=== PATIENT | male | born 1960 | race Caucasian/White ===

== ENCOUNTER 2020-07-15 07:27 | Observation (INO) | payer OTHER, SELFPAY ==
[2020-07-15] VITALS (17 sets, daily range): BP systolic 102–139; BP diastolic 62–89; PULSE 80–124; RESP 11–20; TEMP 36.2–37.8; O2SAT 90–98; BMI 32.8; BMI 32.3
--- NOTE | 2020-07-15 | PATH_ITS ---
[facility] Accession Number: [id number] . 01 Material submitted: . gallbladder - GALLBLADDER AND CONTENTS . 02 Diagnosis: Gallbladder, Cholecystectomy: Acute necrotizing cholecystitis with serositis. Cholelithiasis. Negative for dysplasia and malignancy. [facility] 07/21/2020 1442 Local . 02 Electronically signed: . Yanni Rosado MD, Pathologist NPI- [id number] . 01 Gross description: . The specimen is received in formalin, labeled gallbladder and contents and consists of a diffusely fragmented gallbladder measuring 11.0 x 7.0 x 4.0 cm in aggregate with a 0.3 cm in diameter cystic duct. The serosa is del castillo-pink with adherent purulent exudate and opening reveals a del castillo-pink hemorrhagic and granular mucosa. The wall thickness measures 0.4 cm. Also received within the specimen container are two green bosselated choleliths measuring 1.0 and 1.6 cm. Senior Interior Designer sections are submitted to include the en face cystic duct margin (blue) in cassette A1. (EA:[id number]) /MRV 07/19/2020 1058 Local . 02 Pathologist provided ICD-10: K80.60 . 02 CPT . 984382 Performed at: 01 [facility] [address], [place], [place] [id number] MD Rolando Casey MD Phone: [phone] Performed at: 02 [facility] [address] [place], [place] [id number] MD Yanni Rosado MD Phone: [phone]
--- NOTE | 2020-07-15 07:45 | ED_ITS ---
HPI - Abdominal Pain General Chief Complaint: Abdominal Pain Stated Complaint: upper right quad pain inter x3 days Time Seen by Provider: 07/15/20 07:45 Source: patient Mode of arrival: Ambulatory Limitations: no limitations History of Present Illness HPI narrative: This is a 60-year-old male comes emergency department with complaint of right upper quadrant pain that is been intermittent for the past 3 days. Patient developed discomfort on Saturday which resolved and then reoccurred yesterday. Patient has had constant pain but waxing and waning intensity overnight and into this morning. Patient denies any fevers or chills. He denies any chest pain or shortness of breath. He denies any nausea or vomiting at this time although he had some nausea prior. Patient denies any diarrhea. He states he has not been having any bowel movement recently but has been flatus regularly. He states he has not been eating much food so is not sure if he is truly constipated and has not had much intake. Patient denies any dysuria, frequency or sense of urgency and denies any flank pain. Patient states that his pain is localized more to the right upper quadrant does not appreciated elsewhere in his abdomen. He does not appreciate any exacerbating or alleviating factors. He states that he did have Jin's on Saturday but his pain did not begin immediately after. He denies any medical issues, no regular medications. He denies any prior surgeries except for appendectomy. He does smoke a pack of cigarettes daily, occasional alcohol denies any recreational drugs. He states he does not have a primary care physician. Related Data Home Medications Medication Instructions Recorded Confirmed No Known Home Medications 07/15/20 07/15/20 Allergies Allergy/AdvReac Type Severity Reaction Status Date / Time No Known Drug Allergies Allergy Verified 07/15/20 07:56 Review of Systems Review of Systems ROS Unobtainable: All systems reviewed & are unremarkable except as noted in HPI and below Patient History Surgical History Hx of appendectomy Social History household members: spouse Smoking Status: Current every day smoker alcohol intake: current Smoking Status: Current every day smoker alcohol intake frequency: a few times a month Substance Use Type: does not use Exam Narrative Exam Narrative: GENERAL: Alert and oriented x three, well-nourished male in mild distress. HEENT: Head normocephalic, atraumatic, EOMI, pupils reactive, face symmetric, moist mucous membranes NECK: Supple, full range of motion CARDIOVASCULAR: Regular rate and rhythm without murmurs, rubs or gallops. RESPIRATORY: Breath sounds equal bilaterally, no wheezes rales or rhonchi. ABDOMEN: Soft, positive for right upper quadrant tenderness. Nondistended. Normoactive bowel sounds all 4 quadrants. No guarding or rebound, rigidity, no mass, no pulsatile mass or bruit noted. : No CVA tenderness EXTREMITIES: Normal range of motion, no clubbing or edema. Neurovascularly intact NEUROLOGICAL: Cranial nerves II through XII grossly intact. Moving all extremities SKIN: Warm, dry, no petechiae, no rashes or lesions noted on abdomen or torso. Initial Vital Signs Initial Vital Signs: Vital Signs Pulse Rate 120 H 07/15/20 07:43 Pulse Oximetry 94 07/15/20 07:43 Course Orders Ordered: Discontinued Medications Sodium Chloride (Normal Saline 0.9%) 1,000 mls @ 1,000 mls/hr IV BOLUS ONE Stop: 07/15/20 08:51 Last Infusion: 07/15/20 10:05 Dose: 0 mls/hr Documented by: Admin: 07/15/20 08:36 Dose: 1,000 mls/hr Documented by: LINA Ampicillin Sodium/Sulbactam (Sodium 3 gm/ Sodium Chloride) 100 mls @ 100 mls/hr IV NOW ONE Stop: 07/15/20 09:06 Last Admin: 07/15/20 09:55 Dose: Not Given Documented by: LINA Cefotetan Disodium 2 gm/ (Sodium Chloride) 100 mls @ 200 mls/hr IV NOW ONE Stop: 07/15/20 09:11 Last Infusion: 07/15/20 10:06 Dose: 0 mls/hr Documented by: Admin: 07/15/20 09:34 Dose: 200 mls/hr Documented by: LINA Cefotetan Disodium 2 gm/ (Sodium Chloride) 100 mls @ 200 mls/hr IV INTRA-OP ONE Stop: 07/15/20 17:39 Ketorolac Tromethamine (Ketorolac 60 Mg/2 Ml Vial) 15 mg IV NOW ONE Stop: 07/15/20 07:53 Last Admin: 07/15/20 08:35 Dose: 15 mg Documented by: LINA Vital Signs Vital signs: Vital Signs - 8 hr 07/15/20 07:43 07/15/20 07:50 07/15/20 08:00 Temperature 98.8 F Pulse Rate 120 H 124 H 114 H Respiratory Rate 20 20 Blood Pressure 120/82 126/89 Pulse Oximetry 94 92 92 07/15/20 08:30 07/15/20 09:00 Temperature Pulse Rate 104 H 104 H Respiratory Rate Blood Pressure Pulse Oximetry 93 91 MDM - Abdominal Pain Lab Data Attestation: I reviewed the patient's lab results. Result diagrams: 07/15/20 08:30 07/15/20 08:30 Labs: Lab Results 07/15/20 07/15/20 07/15/20 Range/Units 08:30 08:30 08:30 WBC 14.5 H (4.5-11.0) X10^3/uL RBC 5.58 (4.5-5.9) X10^6/uL Hgb 16.5 (13.5-17.5) g/dL Hct 48.8 (41-53) % MCV 87.4 (80-100) fL MCH 29.6 (26-34) PG MCHC 33.9 (30-36) % RDW 15.2 H (11.6-14.8) % Plt Count 239 (150-400) X10^3/uL Neut % (Auto) 79.1 H (50-75) % Lymph % (Auto) 9.1 L (25-40) % [place] % (Auto) 11.4 (3-14) % Eos % (Auto) 0.2 L (2-4) % Baso % (Auto) 0.2 (0-2) % Neut # (Auto) 48838 H (4174-9293) /uL Lymph # (Auto) 1300 (5136-7245) /uL [place] # (Auto) 1700 H (0-900) /uL Eos # (Auto) 0 (0-450) /uL Baso # (Auto) 0 (0-100) /uL PT 15.9 H (10.1-12.7) SECONDS INR 1.4 H (0.9-1.3) APTT 31 (26.4-36.2) SECONDS Sodium 132 L (137-145) mmol/L Potassium 5.4 H (3.4-5.1) mmol/L Chloride 101 (98-107) mmol/L Carbon Dioxide 23 (22-32) mmol/L BUN 20 (9-20) mg/dL Creatinine 0.96 (0.66-1.25) mg/dL Estimated GFR > 60.0 (>60) mL/min BUN/Creatinine Ratio 20.8 (6-22) Glucose 142 H (80-110) mg/dL Lactate (0.7-2.1) mmol/L Calcium 9.2 (8.4-10.2) mg/dL Total Bilirubin 3.0 H (0.2-1.3) mg/dL AST 41 (17-59) IU/L ALT 21 (<50) IU/L Alkaline Phosphatase 51 (38-126) U/L Total Protein 7.6 (6.3-8.2) g/dL Albumin 4.0 (3.5-5.0) g/dL Globulin 3.6 (1.7-4.1) g/dL Albumin/Globulin Ratio 1.1 (1.0-2.8) Lipase < 10 L (23-300) U/L 07/15/20 Range/Units 08:30 WBC (4.5-11.0) X10^3/uL RBC (4.5-5.9) X10^6/uL Hgb (13.5-17.5) g/dL Hct (41-53) % MCV (80-100) fL MCH (26-34) PG MCHC (30-36) % RDW (11.6-14.8) % Plt Count (150-400) X10^3/uL Neut % (Auto) (50-75) % Lymph % (Auto) (25-40) % [place] % (Auto) (3-14) % Eos % (Auto) (2-4) % Baso % (Auto) (0-2) % Neut # (Auto) (0926-8488) /uL Lymph # (Auto) (8335-6604) /uL [place] # (Auto) (0-900) /uL Eos # (Auto) (0-450) /uL Baso # (Auto) (0-100) /uL PT (10.1-12.7) SECONDS INR (0.9-1.3) APTT (26.4-36.2) SECONDS Sodium (137-145) mmol/L Potassium (3.4-5.1) mmol/L Chloride (98-107) mmol/L Carbon Dioxide (22-32) mmol/L BUN (9-20) mg/dL Creatinine (0.66-1.25) mg/dL Estimated GFR (>60) mL/min BUN/Creatinine Ratio (6-22) Glucose (80-110) mg/dL Lactate 1.1 (0.7-2.1) mmol/L Calcium (8.4-10.2) mg/dL Total Bilirubin (0.2-1.3) mg/dL AST (17-59) IU/L ALT (<50) IU/L Alkaline Phosphatase (38-126) U/L Total Protein (6.3-8.2) g/dL Albumin (3.5-5.0) g/dL Globulin (1.7-4.1) g/dL Albumin/Globulin Ratio (1.0-2.8) Lipase (23-300) U/L Imaging Data US - abdomen: Radiologist's Impression: [address] [id number] ReportSigned Patient: Olu Mitchell R#: [id number]: 9Acct:[id number]/Sex: 60 / MDate of Service: 07/15/20Loc: EDAccession Number: [id number] Procedure: US abdomen limited Ordering Provider: Sophia Galeano D.O. PROCEDURE: US ABDOMEN LIMITED INDICATIONS: RIGHT UPPER QUADRANT PAIN TECHNIQUE: Real-time focused scanning was performed of the abdomen, with image documentation. COMPARISON: None. FINDINGS: Liver is normal in size and echotexture. Non mobile gallstones noted. There is a 5 millimeter gallstone in the neck of the gallbladder. Gallbladder wall is thickened to 17 point 6 millimeters. Trace pericholecystic fluid is noted. Positive sonographic Landon sign reported. Biliary tree is nondilated measuring 5.4 millimeters. IMPRESSION: Sonographic findings compatible with acute cholecystitis and charmaine lithiasis Dictated by: Clarisa Douglas MD, PhD on 07/15/2020 at 8:52 Approved by: Clarisa Douglas MD, PhD on 07/15/2020 at 8:53 ECG Data Attestation: I personally reviewed and interpreted this ECG as follows: Prior ECG tracings: not available for review Interpretation: Sinus tachycardia rate of 114 MO 148 QRS of 100 and QTC of 443. No acute ST elevation appreciated. LAD. No prior EKG available. MDM Narrative Medical decision making narrative: This is a 60-year-old male comes in with 4 days of right upper quadrant pain which has been intermittent. Patient has right upper quadrant tenderness on examination. He has been afebrile but has a white count, gallbladder wall thickening, stones within the gallbladder which are non mobile within elevation in his bilirubin. Patient's potassium is slightly elevated at 5.4. Patient does not have any known medical history but has not seen a physician for several years. Spoke with our general surgeon Dr. Valero who kindly accepts with plan for cefotetan 2 g IV, fluids and he will admit patient. Discharge Plan Departure Patient Disposition: Admitted as Observation Clinical Impression: Abdominal pain, Cholelithiases, Cholecystitis Admit Date/Time: 07/15/20 09:13 Admit Provider: Amandeep Valero
--- NOTE | 2020-07-15 07:53 | DI.US.S_ITS ---
PROCEDURE: US ABDOMEN LIMITED INDICATIONS: RIGHT UPPER QUADRANT PAIN TECHNIQUE: Real-time focused scanning was performed of the abdomen, with image documentation. COMPARISON: None. FINDINGS: Liver is normal in size and echotexture. Non mobile gallstones noted. There is a 5 millimeter gallstone in the neck of the gallbladder. Gallbladder wall is thickened to 17 point 6 millimeters. Trace pericholecystic fluid is noted. Positive sonographic Landon sign reported. Biliary tree is nondilated measuring 5.4 millimeters. IMPRESSION: Sonographic findings compatible with acute cholecystitis and cholelithiasis Dictated by: Clarisa Douglas MD, PhD on 07/15/2020 at 8:52 Approved by: Clarisa Douglas MD, PhD on 07/15/2020 at 8:53
[2020-07-15] MEDS: LACTATED RINGERS 1,000 ML 42 ML IV (08:00)
[2020-07-15] MEDS: KETOROLAC 60 MG/2 ML VIAL 15 MG IV (08:35)
[2020-07-15] MEDS: SODIUM CHLORIDE 0.9% 1,000 ML 1000 ML IV (08:36)
[2020-07-15 08:40] LABS: Add Manual Diff / Slide Review NO; Basophils Absolute Auto 0 /uL (0-100); Basophils Percent Auto 0.2 % (0-2); Eosinophils Absolute Auto 0 /uL (0-450); Eosinophils Percent Auto 0.2 % (2-4); Hematocrit 48.8 % (41-53); Hemoglobin 16.5 g/dL (13.5-17.5); Lymphocytes Absolute Auto 1300 /uL (1100-4500); Lymphocytes Percent Auto 9.1 % (25-40); Mean Corpuscular HGB Conc 33.9 % (30-36); Mean Corpuscular Hemoglobin 29.6 PG (26-34); Mean Corpuscular Volume 87.4 fL (80-100); Monocytes Absolute Auto 1700 /uL (0-900); Monocytes Percent Auto 11.4 % (3-14); Neutrophils Absolute Auto 11500 /uL (1500-7000); Neutrophils Percent Auto 79.1 % (50-75); Platelet Count 239 X10^3/uL (150-400); Red Blood Cell Count 5.58 X10^6/uL (4.5-5.9); Red Cell Distribution Width 15.2 % (11.6-14.8); White Blood Cell Count 14.5 X10^3/uL (4.5-11.0)
[2020-07-15 08:43] LABS: INR 1.4 (0.9-1.3); Prothrombin Time 15.9 SECONDS (10.1-12.7)
[2020-07-15 08:45] LABS: PTT Partial Thromboplastin Tim 31 SECONDS (26.4-36.2)
[2020-07-15 08:47] LABS: Alanine Aminotransferase 21 IU/L (<50); Albumin Globulin Ratio 1.1 (1.0-2.8); Alkaline Phosphatase 51 U/L (38-126); Aspartate Aminotransferase 41 IU/L (17-59); BUN Creatinine Ratio 20.8 (6-22); Blood Urea Nitrogen 20 mg/dL (9-20); Calcium 9.2 mg/dL (8.4-10.2); Carbon Dioxide 23 mmol/L (22-32); Chloride 101 mmol/L (98-107); Estimated Glomerular Filt Rate > 60.0 mL/min (>60); Globulin 3.6 g/dL (1.7-4.1); Glucose 142 mg/dL (80-110); Lactate (Lactic Acid) 1.1 mmol/L (0.7-2.1); Sodium 132 mmol/L (137-145); Total Protein 7.6 g/dL (6.3-8.2)
[2020-07-15 08:49] LABS: HEMOLYSIS 195 (0-50); Lipase < 10 U/L (23-300); Potassium 5.4 mmol/L (3.4-5.1)
[2020-07-15] MEDS: CEFOTETAN 2 GM in SODIUM CHLORIDE 0.9% 100 ML 200 ML IV ×2 (09:34→20:40)
[2020-07-15 10:41] LABS: COVID19 - ADMIT (NP swab/PCR) Negative (Negative)
--- NOTE | 2020-07-15 10:59 | CM.MNRNOTE ---
Addendum entered by Fariha Bryson R.N. 07/15/20 12:03: Patient is npo and has not had anything since 0400 this morning. He is resting comfortably and bolus of NS infusing. Original Note: Patient admitted to room 218 at 1020 for choleecystitis, he denies pain at this time. He is alert and oriented x3. Patient is a 1 pack a day smoker, he occasionally drinks alcohol on holidays and special occasions. Skin is clear, he does have one area on his side that is red, maybe from itching. He will be going down to surgery around 181 this evening. Resting comfortably. Patients support person is his Kelly Mitchell. He is NPO
--- NOTE | 2020-07-15 16:02 | PC.NURSE ---
Addendum entered by Karen Diamond R.N. 07/15/20 19:47: Pt to O.R. awake, alert, conversant. Elif RN from surgery, informed of pt's temp 100.0 and need for intraop antibiotic which was provided intact to Elif to hang when appropriate. Addendum entered by Karen Diamond R.N. 07/15/20 19:11: Continues to rest quietly in bed. Awaiting surgery. Spouse present with pt in room. IV antibiotic ordered intra-op so will notify staff when surgery team comes to transport pt. Addendum entered by Karen Diamond R.N. 07/15/20 16:51: Dr. Valero has seen pt. Pt's spouse, Mimi, now arrives and is at bedside. Pt denies nausea and reports RUQ pain 2/10 @ rest. Denies need for pain medication, but was encouraged to ask for as needed. Pt remains NPO pending surgery. Original Note: Pt resting quietly in bed with eyes closed. No signs of distress or discomfort. IV bolus completed.
--- NOTE | 2020-07-15 17:39 | PM.HP.1 ---
History of Present Illness History of Present Illness Date Patient Seen: 07/15/20 Time Patient Seen: 16:30 Chief complaint: upper right quad pain inter x3 days Narrative: The patient is a gentleman who has about a 3 day history of intermittent abdominal pain. The pain began on Saturday went away and then came back Saturday and is and progressed and kept him up all night he came to the emergency room earlier today. He was found to have gallstones on ultrasound and elevated bilirubin was brought into the hospital. He has no elevated white count as well. No vomiting. No passage of blood per rectum. No history of jaundice. He has not had this pain before. Pain is located in the right upper abdomen. It is eased off quite a bit since his admission. Patient History Surgical History Hx of appendectomy Family & Social History Social History: household members spouse Prior Living Arrangements House Safety & Behavioral: Feels Safe in Current Yes Environment Been Physically Hurt or No Threatened By a Person Suicidal Ideation Description None Suicide Plan Description No Plan Tobacco & Substance use: Tobacco type cigarettes Smoking Status Current every day smoker Smoking packs per day 1 alcohol intake current alcohol intake frequency holiday/special occasion Substance Use Type does not use Meds Home Medications and Allergies Home Medications Medication Instructions Recorded Confirmed Type No Known Home Medications 07/15/20 07/15/20 History Allergies Allergy/AdvReac Type Severity Reaction Status Date / Time No Known Drug Allergies Allergy Verified 07/15/20 07:56 Review of Systems Review of Systems Narrative: Patient denies visual difficulties. He had LASIK surgery in the past and does not wear glasses though he thinks he needs to get some Ernie is a. No he does not have teeth that wears upper and lower dentures. No difficulty swallowing. No earaches. No cough cold or asthma. No heart problems or chest pain. No black or bloody bowel movements. No seizures or blackouts. No kidney stones or blood in his urine. No anxiety or depression. Patient has not seen a doctor recently however. Exam Vital Signs (past 8 hours): - 07/15/20 10:00 07/15/20 10:22 07/15/20 14:01 Temperature 98.4 F 98.2 F Pulse Rate 93 H 80 100 H Respiratory Rate 16 16 Blood Pressure 115/69 113/75 135/88 Pulse Oximetry 94 94 95 Oxygen Delivery Method Room Air Narrative Exam Narrative: Cooperative gentleman in no apparent distress. Despite a bilirubin 3 I really do not see that his sclera is icteric. Pupils equal round reactive to light. Ears without lesion. Nasal septum is midline. Oral mucosa a little dry but no open lesions. Dentures noted. He has no nodes in the neck or supraclavicular areas. Trachea is midline mobile. Thyroid is not enlarged. Lungs are clear to auscultation without rales or rhonchi. Equal percussion. Heart regular rate and rhythm without murmur gallop. No heave lift or thrill. Abdomen is protuberant soft. No tenderness at this time. Liver and spleen are not enlarged. No ventral hernias appreciated. Patient is alert and oriented x3. Speech rate and content are appropriate affect is appropriate. No open skin lesions or ulceration. Texture and turgor 2+. Objective Imaging US - abdomen: My impression: Thickened gallbladder wall with stones. Radiologist's impression: Same with fluid around the gallbladder. Labs Result Diagrams: 07/15/20 08:30 07/15/20 08:30 Labs: Laboratory Results - last 24 hr 07/15/20 07/15/20 07/15/20 08:30 08:30 08:30 WBC 14.5 H RBC 5.58 Hgb 16.5 Hct 48.8 MCV 87.4 MCH 29.6 MCHC 33.9 RDW 15.2 H Plt Count 239 Neut % (Auto) 79.1 H Lymph % (Auto) 9.1 L [place] % (Auto) 11.4 Eos % (Auto) 0.2 L Baso % (Auto) 0.2 Neut # (Auto) 20605 H Lymph # (Auto) 1300 [place] # (Auto) 1700 H Eos # (Auto) 0 Baso # (Auto) 0 PT 15.9 H INR 1.4 H APTT 31 Sodium 132 L Potassium 5.4 H Chloride 101 Carbon Dioxide 23 BUN 20 Creatinine 0.96 Estimated GFR > 60.0 BUN/Creatinine Ratio 20.8 Glucose 142 H Lactate Calcium 9.2 Total Bilirubin 3.0 H AST 41 ALT 21 Alkaline Phosphatase 51 Total Protein 7.6 Albumin 4.0 Globulin 3.6 Albumin/Globulin Ratio 1.1 Lipase < 10 L SARS-CoV-2 (PCR) 07/15/20 07/15/20 08:30 09:33 WBC RBC Hgb Hct MCV MCH MCHC RDW Plt Count Neut % (Auto) Lymph % (Auto) [place] % (Auto) Eos % (Auto) Baso % (Auto) Neut # (Auto) Lymph # (Auto) [place] # (Auto) Eos # (Auto) Baso # (Auto) PT INR APTT Sodium Potassium Chloride Carbon Dioxide BUN Creatinine Estimated GFR BUN/Creatinine Ratio Glucose Lactate 1.1 Calcium Total Bilirubin AST ALT Alkaline Phosphatase Total Protein Albumin Globulin Albumin/Globulin Ratio Lipase SARS-CoV-2 (PCR) Negative Assessment & Plan Assessment & Plan narrative: Cholelithiasis with cholecystitis. Given the elevated bilirubin there is also possibility of choledocholithiasis. However the elevation may just be due to inflammation of the gallbladder. I have discussed the operation that I recommend which is a laparoscopic cholecystectomy and intraoperative cholangiogram with the patient. Rationale for was discussed. Risks of bleeding, infection, injury to internal organs or ducts which would require major operation to repair them, bile leakage probably necessitating an ERCP with stent placement, hernia, and the potential need for postoperative ERCP to extract stones was all discussed with the patient. He appears to understand wishes to proceed.
--- NOTE | 2020-07-15 17:47 | PM.PREOP ---
Pre-operative Note COVID-19 COVID-19 status: Negative Result date/Date tested (Pos, Neg/Pending): 07/15/20 Interval Note History & Physical reviewed/Exam performed by Physician: Yes Changes to H&P: No
--- NOTE | 2020-07-15 21:07 | SUR.OPER ---
Supine on padded OR bed, head on pillow, arms secured on padded arm boards at <90 degrees abduction, legs uncrossed, safety belt at thigh, tape over blanket over lower legs.
[2020-07-15] MEDS: BUPIVACAINE 0.5% (PF) VIAL 30 ML INJ (21:17)
--- NOTE | 2020-07-15 22:39 | P.OP_ITS ---
Operative Date/Time/Diagnoses Date of procedure: 07/15/20 Time of procedure: 22:39 Pre-op diagnosis: Acute cholecystitis with cholelithiasis. Post-op diagnosis: other (Acute cholecystitis with cholelithiasis and hydrops of the gallbladder with an obstructed cystic duct.) Procedure & Clinicians Procedure: Laparoscopic cholecystectomy Same procedure as scheduled: Yes Indications: Inflamed gallbladder with stones and abdominal pain. Surgeon: Amandeep Valero Click Yes if Unassisted: Yes Anesthesia Type: General Operative Notes Findings: Markedly thickened gallbladder wall and a gallbladder filled with nearly clear fluid. Tiny cystic duct. Closure Type: primary Specimen(s): other (Gallbladder in pieces and cultures of the gallbladder fluid) Applied: drain(s) (Neil-Benito placed in the gallbladder fossa) Estimated Blood Loss (mL): 20 Blood products transfused: none Procedure in detail: The patient was placed supine on the operating room table and underwent general endotracheal anesthesia. The patient was prepped and d raped in the usual fashion. Local anesthetic was infiltrated near the umbilicus and linear incision made and carried down through fascia into the peritoneal cavity. Stay sutures of 0 Vicryl were placed in the fascia. A 12 mm port was placed. The abdomen was insufflated. The patient was repositioned. Local anesthetic was infiltrated in 3 areas under the right costal margin and 3 small incisions made followed by placing 3 5 mm ports under direct laparoscopic camera vision internally. The gallbladder was identified and was encased in omentum which was bluntly swept off of it. It was tensely distended and I had aspirate the contents in order to place clamps on it. The fluid was almost clear and mucoid in nature. Cultures were sent. It was there had Grasped and elevated. Dissection was begun near its end. Principally with blunt dissection I isolated what appeared to be a ductal structure going directly to the gallbladder that was singular in nature. Four clips were placed across it was divided leaving 2 in the patient. I chose not to do a cholangiogram through the cystic duct because it was quite small and the fluid aspirated suggested no stone could pass out through because the outlet of the gallbladder was obstructed. I also bluntly isolated what appeared to be the cystic artery. It was handled in identical fashion. The gallbladder was then dissected from its bed in the liver using cautery. This was a very slow tedious process due to the amount of edema and thickness of the wall. Ultimately the gallbladder was detached, placed in a bag to prevent spillage and removed through the umbilical port. I had to remove it in pieces due to its very large size and thick wall. There were 3 still nodes in the gallbladder 1 measuring about 2 cm. Meticulous hemostasis was achieved in the gallbladder bed. The right upper quadrant irrigated and suctioned free of fluid. I placed a 7 mm wide Neil-Benito drain in the gallbladder fossa and brought it out through the lateral-most port. This was secured with a 2 0 PDS suture. The other ports were removed. The port sites were all irrigated. The stay sutures at the umbilicus were elevated. A 2 0 PDS suture was placed between them. The Vicryl and PDS sutures were then tied. The skin in all areas was closed with interrupted 4 0 Vicryl subcuticular stitches. Steri-Strips and Mastisol were applied. Band-Aids were placed and the patient was awakened, extubated and taken to the recovery area in good condition. Complications: none Post-operative Condition: stable Disposition: PACU Plan for aftercare: Admit. IV antibiotics.
--- NOTE | 2020-07-15 22:45 | SUR.PHASEI ---
Patient denies any pain or nausea; vss. post-surgical dressings CDI.
[2020-07-15] MEDS: ONDANSETRON 4 MG/2 ML INJ IV (22:50)
[2020-07-15] MEDS: LACTATED RINGERS 1,000 ML 150 ML IV (23:33)
[2020-07-16] VITALS (8 sets, daily range): BP systolic 102–131; BP diastolic 64–86; PULSE 78–90; RESP 18–20; TEMP 36.1–36.4; O2SAT 93–95
[2020-07-16] MEDS: OXYCODONE IR 5 MG TABLET 10 MG PO (03:34)
[2020-07-16] MEDS: LACTATED RINGERS 1,000 ML 150 ML IV (06:01)
[2020-07-16 06:02] LABS: Add Manual Diff / Slide Review NO; Basophils Absolute Auto 0 /uL (0-100); Basophils Percent Auto 0.2 % (0-2); Eosinophils Absolute Auto 0 /uL (0-450); Hematocrit 43.4 % (41-53); Hemoglobin 14.5 g/dL (13.5-17.5); Lymphocytes Absolute Auto 700 /uL (1100-4500); Lymphocytes Percent Auto 6.8 % (25-40); Mean Corpuscular HGB Conc 33.5 % (30-36); Mean Corpuscular Hemoglobin 29.5 PG (26-34); Monocytes Absolute Auto 500 /uL (0-900); Monocytes Percent Auto 4.2 % (3-14); Neutrophils Absolute Auto 9800 /uL (1500-7000); Neutrophils Percent Auto 88.8 % (50-75); Platelet Count 218 X10^3/uL (150-400); Red Blood Cell Count 4.93 X10^6/uL (4.5-5.9); Red Cell Distribution Width 14.6 % (11.6-14.8)
[2020-07-16 06:13] LABS: Alanine Aminotransferase 40 IU/L (<50); Albumin 3.3 g/dL (3.5-5.0); Albumin Globulin Ratio 1.1 (1.0-2.8); Alkaline Phosphatase 66 U/L (38-126); Aspartate Aminotransferase 62 IU/L (17-59); BUN Creatinine Ratio 24.2 (6-22); Blood Urea Nitrogen 23 mg/dL (9-20); Calcium 8.9 mg/dL (8.4-10.2); Carbon Dioxide 30 mmol/L (22-32); Chloride 103 mmol/L (98-107); Estimated Glomerular Filt Rate > 60.0 mL/min (>60); Glucose 180 mg/dL (80-110); HEMOLYSIS < 15 (0-50); Sodium 138 mmol/L (137-145); Total Protein 6.3 g/dL (6.3-8.2)
[2020-07-16 06:14] LABS: Potassium 5.3 mmol/L (3.4-5.1)
[2020-07-16] MEDS: CEFOTETAN 2 GM in SODIUM CHLORIDE 0.9% 100 ML 200 ML IV (08:49)
[2020-07-16] MEDS: ENOXAPARIN 40 MG/0.4 ML SYRINGE SUBCUT (08:50)
[2020-07-16] MEDS: GABAPENTIN 300 MG CAPSULE PO (08:50)
[2020-07-16] MEDS: SENNOSIDES 8.6 MG TABLET 17.2 MG PO (08:50)
--- NOTE | 2020-07-16 10:38 | CM.DANOTE ---
Addendum entered by OSBALDO Ray 07/16/20 13:15: ADD: Per Surgeon, pt medically stable to d/c home with outpt follow up and no identified barriers to discharge. Pt's spouse provided transport home and no concerns at this time. BF Original Note: Patient is a 60 year old male who was admitted on 07/15/20 for Upper Right Quadrant Pain. Pt has [employer] for insurance and his PCP is not listed. EMR was reviewed. Per Surgeon, pt with gallstones and elevated bilirubin and recommending a Lap Xena and pt agreeable with surgery and Surgeon completed procedure last night and pt tolerated well. SW met bedside with pt and explained role and pt confirmed that he lives in [place] with his spouse and is active and independent at baseline. Pt denies any hx of HH or SNF or any recent hospital admissions. Pt is retired but spouse still works and they just completed vacation time together and spouse is back to work on Saturday but can assist if needed at d/c. Pt states spouse is currently his informal DPOA. Preference is to d/c home today with spouse if medically stable and pt does not anticipate any SW needs at d/c. Plan: SW to follow for Surgeon to round to determine any d/c planning needs and if pt stable and safe for d/c home later today or tomorrow. OSBALDO Ray Discharge Planning/Care Management CM Discharge Assessment Start: 07/16/20 10:37 Freq: Status: Active Protocol: Document 07/16/20 10:37 BF (Rec: 07/16/20 10:38 [id number]) Discharge Planning Assessment Assigned [employer] Tender OSBALDO Jones DPOA/Assigned Designee Name none, informally spouse Mimi Advance Directives? No Advance Directives on File No History Provided By Patient,Medical Record Has Patient been admitted in last 30 No days? Prior Living Arrangements House Household Members spouse Type of transporation used prior to Drives own vehicle admit Comment Quite active and independent at baseline Independent with ADL's Yes Is patient alert and oriented? Yes Caregiver for Another No Barriers to Discharge No Discharge Plan Home Transportation Arrangement Spouse available for transport at d/c Referrals Initiated None needed Whiteboard Updated in Patient Room with Yes name and ext. # of [employer] Machine Tender Review Status In Process Please Provide Date Initial DC 07/16/20 Assessment Was Performed Next Review Type Continued Stay Review
--- NOTE | 2020-07-16 11:15 | PM.DS.1 ---
History of Present Illness History of Present Illness Date Patient Seen: 07/16/20 Time Patient Seen: 11:15 Chief complaint: upper right quad pain inter x3 days Narrative: Patient was admitted for acute cholecystitis. Discharge Providers Provider Date of admission: 07/15/20 09:13 Discharge Date: 07/16/20 Consults: 07/15/20 23:23 Consult to Discharge Planning Routine Comment: Discharge provider: Benoit Louis MD Summary Hospital Course Discharge Diagnosis: Acute cholecystitis Hospital Course: Underwent a laparoscopic cholecystectomy 07/15. Operation was notable for hydrops. Preoperative total bilirubin 3.0 today postop 1.0, remainder of labs are unremarkable. He is tolerating a diet his pain is well controlled and stable for discharge home. He has a intra-abdominal drain which will be removed in 2 days time in clinic. Exam Vital Signs (past 8 hours): - 07/16/20 04:30 07/16/20 04:56 07/16/20 08:00 Temperature 97.5 F L Pulse Rate 90 Respiratory Rate 18 Blood Pressure 102/73 Pulse Oximetry 95 95 95 07/16/20 09:23 Temperature 97.0 F L Pulse Rate 78 Respiratory Rate 20 Blood Pressure 102/64 Pulse Oximetry 93 Oxygen Delivery Method Room Air Oxygen Flow Rate 0 Narrative Exam Narrative: General adult male alert oriented no acute distress Abdomen soft appropriately tender palpation laparoscopic port incisions are clean dry intact. TAL drain serosanguineous output. Objective Labs Result Diagrams: 07/16/20 05:45 07/16/20 05:45 Labs: Laboratory Results - last 24 hr 07/16/20 07/16/20 05:45 05:45 WBC 11.0 RBC 4.93 Hgb 14.5 Hct 43.4 MCV 88.0 MCH 29.5 MCHC 33.5 RDW 14.6 Plt Count 218 Neut % (Auto) 88.8 H Lymph % (Auto) 6.8 L [place] % (Auto) 4.2 Eos % (Auto) 0.0 L Baso % (Auto) 0.2 Neut # (Auto) 9800 H Lymph # (Auto) 700 L [place] # (Auto) 500 Eos # (Auto) 0 Baso # (Auto) 0 Sodium 138 Potassium 5.3 H Chloride 103 Carbon Dioxide 30 BUN 23 H Creatinine 0.95 Estimated GFR > 60.0 BUN/Creatinine Ratio 24.2 H Glucose 180 H Calcium 8.9 Total Bilirubin 1.0 AST 62 H ALT 40 Alkaline Phosphatase 66 Total Protein 6.3 Albumin 3.3 L Globulin 3.0 Albumin/Globulin Ratio 1.1 PFSH Surgical History Hx of appendectomy Social History household members: spouse Smoking Status: Current every day smoker alcohol intake: current Discharge Plan Discharge Plan Patient Disposition: Home Discharge orders & Medications Prescriptions: New docusate sodium [Colace] 100 mg capsule 100 mg PO BID Qty: 30 RF: 0 oxycodone 5 mg tablet 5 mg PO Q6H PRN (Reason: pain) Qty: 30 RF: 0 acetaminophen [Tylenol] 325 mg capsule 650 mg PO QID PRN (Reason: pain) Qty: 60 RF: 0 Follow up/Referrals: Benoit Louis MD [Physician] - (Follow-up 07/18 or 07/19 for drain removal) Diet/Activity/Treatments Diet: Low-fat Activity: No lifting >20 lbs x 4 weeks. Walking only for exercise for [address] while taking narcotics. Skin/Wound/Dressing Care Skin care: Okay to shower. Do not submerge the wounds until seen in follow-up. Report to your healthcare provider any signs of infection, such as:: chills, fever, increased pain, unusual drainage and unusual redness Dressing: Empty drain as instructed Discharge Data Attending Provider: Amandeep Valero
--- NOTE | 2020-07-16 12:56 | PC.NURSE ---
Patient A&Ox4. VSS, on RA. Incision CDI. Ambulating with steady gait. Tolerating meals well, +BS x4. TAL drain to RLQ with 20cc serosanguineous liquid.MD at bedside clearing patient for discharge. Verbalizes understanding of medications, activity, drain and incision care as well as follow up appointments.Escorted with and all of belongings to private vehicle discharged home
--- NOTE | 2020-07-22 11:30 | PC.NURSE ---
Late Entry; Cefotetan infusion initiate 07/16 at 0849, complete at 0920.
== END 2020-07-16 13:07 | disposition home or self-care (01) ==
LOC: ED 09:12 → AC 09:14
PROVIDERS: Admitting Provider Specialist; Emergency Provider Emergency Medicine; Referring Provider Emergency Medicine; Visit Provider Specialist
PROC: 0FT44ZZ Resection of Gallbladder, Percutaneous Endoscopic Approach (ICD-10-PCS; CPT 47562; principal; 2020-07-15 18:15)
DX: K80.01 Calculus of gallbladder with acute cholecystitis with obstruction (principal); F17.210 Nicotine dependence, cigarettes, uncomplicated; Z20.822 Contact with and (suspected) exposure to COVID-19; K82.1 Hydrops of gallbladder
CPT/HCPCS: 47562; 36415; 76705; 80053; 83605; 83690; 85025; 85610; 85730; 87040; 87070; 87075; 87077; 87185; 87205; 87635; 93005; 93010; 96361; 96365; 96366; 96372; 96375; 99220; 99284; C9803; G0378; J1100; J1650; J1885; J2250; J2405; J2704; J3010